=== PATIENT | male | born 1950 | race Caucasian/White ===

== ENCOUNTER 2018-03-13 21:43 | Emergency (ER) | payer BC ==
[2018-03-13] MEDS ORDERED: Lidocaine 1% 20 ML MDV ONE (22:03)
[2018-03-13] MEDS ORDERED: Lidocaine 1% 10 ML MDV INJECT ONE (22:25)
[2018-03-13] MEDS ORDERED: Diphtheria,Pertussis(Acell),Tetanus Vaccine 0.5 ML SDV IM ONE (22:25)
--- NOTE | 2018-03-13 22:44 | EDM.PDOC ---
ED HPI GENERAL MEDICAL PROBLEM - General Chief Complaint: Laceration Stated Complaint: laceration Left ear Time Seen by Provider: 03/13/18 22:39 Source of Information: Reports: Patient History Limitations: Reports: No Limitations - History of Present Illness INITIAL COMMENTS - FREE TEXT/NARRATIVE: Patient is a 67-year-old gentleman who presents to the emergency department this evening with a complaint of left ear laceration. Patient states that he tripped and landed against a dresser and struck the left side of his head. Patient denies syncopal episode, history of falls, headache, blurry vision, nausea, vomiting, neck pain, currently on blood thinners, or any other injury. Onset: Today Onset Date: 03/13/18 Onset Time: 21:00 Location: Reports: Head Quality: Reports: Other (No discomfort) Improves with: Reports: None Worsens with: Reports: None Context: Reports: Trauma Associated Symptoms: Reports: No Other Symptoms - Related Data Allergies Allergy/AdvReac Type Severity Reaction Status Date / Time No Known Drug Allergies Allergy Cannot Verified 03/13/18 21:57 Remember Home Meds: Home Meds . [No Known Home Meds] 03/13/18 [History] ED ROS GENERAL - Review of Systems Review Of Systems: ROS reveals no pertinent complaints other than HPI. Constitutional: Reports: No Symptoms HEENT: Reports: No Symptoms Respiratory: Reports: No Symptoms Cardiovascular: Reports: No Symptoms Endocrine: Reports: No Symptoms GI/Abdominal: Reports: No Symptoms : Reports: No Symptoms Musculoskeletal: Reports: No Symptoms Skin: Reports: Wound (Laceration to left ear) Neurological: Reports: No Symptoms Psychiatric: Reports: No Symptoms Hematologic/Lymphatic: Reports: No Symptoms Immunologic: Reports: No Symptoms ED EXAM, SKIN/RASH Exam: See Below Exam Limited By: No Limitations General Appearance: Alert, WD/WN, No Apparent Distress Eye Exam: Bilateral Eye: Normal Inspection Ears: Normal Canal, Normal TMs, Other (Left superior auricle with a 3 cm laceration extending from anterior to posterior) Nose: Normal Inspection, No Blood Throat/Mouth: Normal Inspection, Normal Oropharynx, No Airway Compromise Neck: Normal Inspection, Supple, Non-Tender, Full Range of Motion Respiratory/Chest: No Respiratory Distress GI/Abdominal: Normal Bowel Sounds, Soft, Non-Tender Back Exam: Normal Inspection Extremities: Normal Inspection Neurological: Alert, Oriented, CN II-XII Intact, Normal Cognition, No Motor/ Sensory Deficits Psychiatric: Normal Affect, Normal Mood Skin: Warm, Dry, Intact, Normal Color, No Rash Location, Skin: Head ED SKIN PROCEDURES - Laceration/Wound Repair Left Posterior Ear Appearance: Superficial Distal NVT: Neuro & Vascular Intact Anesthetic Type: Local Local Anesthesia - Lidocaine (Xylocaine): 1% Plain Local Anesthetic Volume: 3cc Skin Prep: Providone-Iodine (Betadine) Closed with: Sutures Suture Size: other (5.0) Sterile Dressing Applied: Nurse Tetanus Status Addressed: Yes Course - Vital Signs Last Recorded V/S: Last Vital Signs Temp 95.9 F 03/13/18 21:55 Pulse 101 H 03/13/18 21:55 Resp 16 03/13/18 21:55 BP 164/89 H 03/13/18 21:55 Pulse Ox 92 L 03/13/18 21:55 - Orders/Labs/Meds Orders: Active Orders 24 hr Category Date Time Status Vaccines to be Administered [RC] PER UNIT ROUTINE Care 03/13/18 22:26 Active Meds: Medications Discontinued Medications Generic Name Dose Route Start Last Admin Trade Name Jessica PRN Reason Stop Dose Admin Diphtheria/Tetanus/Acell Pertussis 0.5 ml 03/13/18 22:25 Adacel IM 03/13/18 22:26 .ONCE ONE Lidocaine HCl Confirm 03/13/18 22:03 03/13/18 22:27 Xylocaine 1% Administered 03/13/18 22:04 Not Given Dose 20 ml .ROUTE .STK-MED ONE Lidocaine HCl 3 ml 03/13/18 22:25 03/13/18 22:27 Xylocaine 1% INJECT 03/13/18 22:26 3 ml ONETIME ONE Administration - Re-Assessments/Exams Free Text/Narrative Re-Assessment/Exam: 03/13/18 22:45 Patient afebrile, nontoxic appearing, vital signs stable, tolerated procedure well. Patient will return to clinic to have sutures removed in 10 days. Departure - Departure Time of Disposition: 22:45 Disposition: Home, Self-Care 01 Condition: Good Clinical Impression: Ear lobe laceration Qualifiers: Encounter type: initial encounter Laterality: left Qualified Code(s): S01.312A - Laceration without foreign body of left ear, initial encounter - Discharge Information Instructions: Stitches, [place], or Adhesive Wound Closure, [id number], Laceration Care, Adult, [id number] Referrals: Nina Kovacs MD [Physician] - Additional Instructions: Follow-up with Dr. Reddy in 10 days for suture removal, return to emergency department sooner if symptoms continue. - My Orders Last 24 Hours: My Active Orders 03/13/18 22:26 Vaccines to be Administered [RC] PER UNIT ROUTINE - Assessment/Plan Last 24 Hours: My Active Orders 03/13/18 22:26 Vaccines to be Administered [RC] PER UNIT ROUTINE Assessment:: Laceration, left ear Plan: Patient return in 10 days to clinic for suture removal
== END 2018-03-13 22:50 | disposition home or self-care (01) ==
LOC: KA.ED 21:43
DX: S01.312A Laceration without foreign body of left ear, initial encounter (principal); W18.09XA Striking against other object with subsequent fall, initial encounter; Z23 Encounter for immunization
CPT/HCPCS: 12013; 90471; 90715; 99282; A9270-GY

== ENCOUNTER 2022-01-19 10:33 | Inpatient (IN) | payer MEDICARE ==
[2022-01-19 11:02] LABS: HEMOGLOBIN A1C 12.9 % (4.3-5.7)
[2022-01-19 11:12] LABS: ANION GAP 9.2 mmol/L (5-15); CHLORIDE,CL 98 mmol/L (98-107); SODIUM,NA 134 mmol/L (136-145)
[2022-01-19] MEDS ORDERED: Sodium Chloride 0.9% 10 ML Syringe FLUSH PRN (12:56)
[2022-01-19] MEDS ORDERED: Zolpidem 5 MG Tab PO PRN (12:56)
[2022-01-19] MEDS ORDERED: Ondansetron 4 MG Tab.DIS PO PRN (13:00)
[2022-01-19] MEDS ORDERED: Insulin Glargine,Hum.Rec.Anlog 100 UNIT/ML 3 ML Pen SUBCUT ONE (13:00)
[2022-01-19] MEDS ORDERED: Albuterol/Ipratropium 3.0-0.5 MG/3 ML Neb Soln NEB PRN (13:00)
[2022-01-19] MEDS ORDERED: 50% Dextrose in Water 50 ML Syringe IVPUSH PRN (13:08)
[2022-01-19] MEDS ORDERED: Glucagon,Human Recombinant 1 MG Vial IM PRN (13:08)
[2022-01-19] MEDS ORDERED: Sodium Chloride 0.9% 1,000 ML IV ONE (13:09)
[2022-01-19] MEDS ORDERED: Iopamidol 755 Mg/ML 75 ML Bottle IVPUSH ONE (13:15)
[2022-01-19] MEDS ORDERED: Sodium Chloride 0.9% 100 ML IV SCH (13:15)
[2022-01-19] MEDS ORDERED: Azithromycin 500 MG in Sodium Chloride 0.9% 250 ML IV SCH (14:00)
[2022-01-19] MEDS: predniSONE 20 MG Tab PO SCH (17:58)
[2022-01-19] MEDS: Hydrocortisone/Neomycin/Polymyxin B Otic Susp 10 ML Bottle EARRT SCH ×2 (17:58→22:11)
[2022-01-19] MEDS ORDERED: metFORMIN 500 MG Tab.ER PO SCH (18:00)
[2022-01-19] MEDS: Insulin Lispro 100 Unit/ML 3 ML KwikPen SUBCUT SCH (18:08)
[2022-01-19] MEDS ORDERED: Acetaminophen 325 MG Tab PO PRN (19:28)
[2022-01-19] MEDS: guaiFENesin/Dextromethorphan 100-10 MG/5 ML Soln 5 ML Cup PO PRN (19:43)
[2022-01-19] MEDS ORDERED: Insulin Glargine,Hum.Rec.Anlog 100 UNIT/ML 3 ML Pen SUBCUT SCH (22:00)
[2022-01-20] MEDS: guaiFENesin/Dextromethorphan 100-10 MG/5 ML Soln 5 ML Cup PO PRN ×2 (00:32→07:13)
[2022-01-20 06:21] VITALS: BP 153/82; PULSE 87
[2022-01-20] MEDS: Lisinopril 10 MG Tab PO SCH ×2 (07:13→08:10)
[2022-01-20] MEDS: Hydrochlorothiazide 12.5 MG Cap PO SCH ×2 (07:14→08:09)
[2022-01-20] MEDS: predniSONE 20 MG Tab PO SCH ×2 (07:15→08:09)
[2022-01-20] MEDS: Hydrocortisone/Neomycin/Polymyxin B Otic Susp 10 ML Bottle EARRT SCH ×3 (07:18→13:50)
[2022-01-20] MEDS: Insulin Lispro 100 Unit/ML 3 ML KwikPen SUBCUT SCH ×2 (08:02→12:14)
[2022-01-20] MEDS ORDERED: Pseudoephedrine 30 MG Tab PO PRN (19:55)
== END 2022-01-20 13:40 | disposition home or self-care (01) | DRG 637 ==
LOC: KA.OC 10:33 → KA.MS 11:00 → UNDOADMIN 11:00 → KA.MS 12:17
PROVIDERS: ADMIT Nurse Practitioner Family; ATTEND Nurse Practitioner Family
DX: E11.65 Type 2 diabetes mellitus with hyperglycemia (principal); J18.9 Pneumonia, unspecified organism; R91.8 Other nonspecific abnormal finding of lung field; H90.3 Sensorineural hearing loss, bilateral; Z20.822 Contact with and (suspected) exposure to COVID-19; H60.509 Unspecified acute noninfective otitis externa, unspecified ear; Z79.4 Long term (current) use of insulin; Z79.52 Long term (current) use of systemic steroids; Z79.899 Other long term (current) drug therapy
CPT/HCPCS: 36415; 71046; 71275; 80048; 82947; 83036; 85025; 85379; 87070; 87186; 87205; A9270-GY; J0456; J1815-GY; J7030; J7050; J7512; J7620-GY; Q9967; U0002

== ENCOUNTER 2025-08-26 18:02 | Inpatient (IN) | payer MEDICARE ==
[2025-08-26] MEDS: Sodium Chloride 0.9% 10 ML Syringe FLUSH PRN (19:17)
[2025-08-26 19:26] LABS: BASOPHILS ABSOLUTE AUTO 0.08 10^3/uL (0.00-0.10); BASOPHILS PERCENT AUTO 0.8 % (0.0-1.0); EOSINOPHILS ABSOLUTE AUTO 0.44 10^3/uL (0.10-0.30); EOSINOPHILS PERCENT AUTO 4.3 % (1.0-3.0); IMMATURE GRAN ABSOLUTE AUTO 0.02 10^3/uL (0.00-0.04); IMMATURE GRAN PERCENT AUTO 0.2 % (0.0-0.4); LYMPHOCYTES ABSOLUTE AUTO 1.50 10^3/uL (1.00-4.00); LYMPHOCYTES PERCENT AUTO 14.6 % (20.0-40.0); MEAN PLATELET VOLUME 9.5 fL (7.4-10.4); MONOCYTES ABSOLUTE AUTO 1.00 10^3/uL (0.10-0.80); MONOCYTES PERCENT AUTO 9.7 % (2.0-8.0); NEUTROPHILS ABSOLUTE AUTO 7.24 10^3/uL (2.50-7.00); NEUTROPHILS PERCENT AUTO 70.4 % (50.0-70.0); PLATELET COUNT,PLT 165 10^3/uL (150-400); RED BLOOD CELL COUNT 3.52 10^6/uL (4.50-6.00); RED CELL DISTRIBUTION WIDTH 14.0 % (11.5-14.5); WHITE BLOOD CELL COUNT,WBC 10.28 10^3/uL (5.00-10.00)
[2025-08-26 19:51] LABS: ALANINE AMINOTRANSFERASE,ALT 27.0 U/L (14-63); ASPARTATE AMNIOTRANSFERASE,AST 23.0 U/L (15-37); BILIRUBIN TOTAL 0.4 mg/dL (0.2-1.0); BLOOD UREA NITROGEN,BUN 26.0 mg/dL (7-18); CARBON DIOXIDE,CO2 30.3 mmol/L (21.0-32.0); CHLORIDE,CL 102.0 mmol/L (98-107); CREATININE 0.97 mg/dL (0.51-1.17); EST CRCL DRUG DOSING (CG) 57.24 mL/min; ESTIMATED GFR 81.0 mL/min (>=60); GLUCOSE RANDOM 173.0 mg/dL (70-140); POTASSIUM,K 4.0 mmol/L (3.5-5.1); PROTEIN TOTAL,TP 6.1 g/dL (6.4-8.2); SODIUM,NA 139.0 mmol/L (136-145)
[2025-08-26] MEDS: Iopamidol 755 Mg/ML 100 ML Bottle IV ONE (20:25)
[2025-08-26 20:28] LABS: APPEARANCE,URINE CLEAR (CLEAR); GLUCOSE,URINE NEGATIVE (NEGATIVE); OCCULT BLOOD,URINE TRACE-INTACT (NEGATIVE)
[2025-08-26 20:35] LABS: EPITHELIAL CELLS,URINE NOT SEEN /LPF; SQUAMOUS EPITHELIAL CELLS,UR NOT SEEN /HPF (NOT SEEN)
[2025-08-26] MEDS ORDERED: 50% Dextrose in Water 50 ML Syringe IVPUSH PRN ×3 (23:06)
[2025-08-26] MEDS ORDERED: Glucose Gel 15 GM in 37.5 GM Tube PO PRN (23:06)
[2025-08-27] MEDS: Insulin Lispro 100 Unit/ML 3 ML KwikPen SUBCUT SCH ×2 (07:43→21:58)
[2025-08-27 07:44] LABS: BASOPHILS ABSOLUTE AUTO 0.08 10^3/uL (0.00-0.10); BASOPHILS PERCENT AUTO 0.8 % (0.0-1.0); EOSINOPHILS ABSOLUTE AUTO 0.61 10^3/uL (0.10-0.30); EOSINOPHILS PERCENT AUTO 6.2 % (1.0-3.0); IMMATURE GRAN ABSOLUTE AUTO 0.02 10^3/uL (0.00-0.04); IMMATURE GRAN PERCENT AUTO 0.2 % (0.0-0.4); LYMPHOCYTES ABSOLUTE AUTO 1.82 10^3/uL (1.00-4.00); LYMPHOCYTES PERCENT AUTO 18.5 % (20.0-40.0); MEAN PLATELET VOLUME 9.2 fL (7.4-10.4); MONOCYTES ABSOLUTE AUTO 0.80 10^3/uL (0.10-0.80); MONOCYTES PERCENT AUTO 8.1 % (2.0-8.0); NEUTROPHILS ABSOLUTE AUTO 6.51 10^3/uL (2.50-7.00); NEUTROPHILS PERCENT AUTO 66.2 % (50.0-70.0); PLATELET COUNT,PLT 190 10^3/uL (150-400); RED BLOOD CELL COUNT 3.47 10^6/uL (4.50-6.00); RED CELL DISTRIBUTION WIDTH 13.7 % (11.5-14.5); WHITE BLOOD CELL COUNT,WBC 9.84 10^3/uL (5.00-10.00)
[2025-08-27 08:01] LABS: BLOOD UREA NITROGEN,BUN 15.0 mg/dL (7-18); CARBON DIOXIDE,CO2 29.0 mmol/L (21.0-32.0); CHLORIDE,CL 102.0 mmol/L (98-107); CREATININE 0.66 mg/dL (0.51-1.17); EST CRCL DRUG DOSING (CG) 84.0 mL/min; GLUCOSE RANDOM 161.0 mg/dL (70-140); POTASSIUM,K 3.9 mmol/L (3.5-5.1); SODIUM,NA 138.0 mmol/L (136-145)
[2025-08-27 08:08] LABS: ESTIMATED GFR 98.0 mL/min (>=60)
[2025-08-27] MEDS: Multivitamins with Minerals/Iron/Folic Acid/Lycopene Tab PO SCH (08:33)
[2025-08-27] MEDS: Cyanocobalamin (Vitamin B12) 500 MCG Tab PO SCH (08:33)
[2025-08-27] MEDS: Acetaminophen/oxyCODONE 325-5 MG Tab PO PRN (08:40)
[2025-08-27 11:35] LABS: PHOSPHORUS 3.2 mg/dL (2.6-4.7)
[2025-08-28] MEDS: Sennosides/Docusate Sodium 50-8.6 MG Tab PO PRN (08:39)
[2025-08-28] MEDS: Furosemide 40 MG/4 ML VIAL IVPUSH ONE (11:44)
[2025-08-28] MEDS: Trolamine Salicylate/Aloe Vera 10% Crm 85 GM Tube TOP PRN (20:39)
[2025-08-29] MEDS: TRULICITY 3 MG/0.5 ML SQ SCH (21:23)
[2025-08-30] MEDS: hydrALAZINE 20 MG/ML SDV IVPUSH PRN (17:05)
[2025-08-31] MEDS: Insulin Lispro 100 Unit/ML 3 ML KwikPen SUBCUT SCH (08:21)
== END 2025-08-31 11:26 | disposition home or self-care (01) | DRG 948 ==
LOC: KA.ED 18:02 → KA.MS 21:20
PROVIDERS: ADMIT Family Medicine; ATTEND Family Medicine
DX: R53.81 Other malaise (principal); J98.11 Atelectasis; R53.1 Weakness; E11.42 Type 2 diabetes mellitus with diabetic polyneuropathy; I10 Essential (primary) hypertension; Z79.84 Long term (current) use of oral hypoglycemic drugs; J45.909 Unspecified asthma, uncomplicated; E11.21 Type 2 diabetes mellitus with diabetic nephropathy; E86.0 Dehydration; I95.9 Hypotension, unspecified; R26.2 Difficulty in walking, not elsewhere classified; R09.02 Hypoxemia; M19.90 Unspecified osteoarthritis, unspecified site; Z96.659 Presence of unspecified artificial knee joint; Z79.82 Long term (current) use of aspirin; Z98.890 Other specified postprocedural states; Z79.4 Long term (current) use of insulin; Z79.899 Other long term (current) drug therapy; Z98.49 Cataract extraction status, unspecified eye; Z87.891 Personal history of nicotine dependence
CPT/HCPCS: 36415; 71045; 71275; 73560-RT; 80048; 80053; 81001; 82947; 83605; 83735; 84100; 84484; 85014; 85018; 85025; 85379; 93010; 97110-GP; 97116-GP; 97161-GP; 97165-GO; 97535-GO; 99284; 99285; A4315; A9270-GY; J0360; J1650; J1938; J7030; Q3014; Q9967

== ENCOUNTER 2025-08-31 08:17 | Inpatient (IN) | payer MEDICARE ==
[2025-08-31] MEDS ORDERED: Glucose Gel 15 GM in 37.5 GM Tube PO PRN ×3 (10:59)
[2025-08-31] MEDS ORDERED: 50% Dextrose in Water 50 ML Syringe IVPUSH PRN ×3 (10:59)
[2025-08-31] MEDS ORDERED: Acetaminophen/oxyCODONE 325-5 MG Tab PO PRN (10:59)
[2025-08-31] MEDS: Insulin Lispro 100 Unit/ML 3 ML KwikPen SUBCUT SCH (12:33)
[2025-09-01] MEDS: Multivitamins with Minerals/Iron/Folic Acid/Lycopene Tab PO SCH (08:25)
[2025-09-01] MEDS: Cyanocobalamin (Vitamin B12) 500 MCG Tab PO SCH (08:26)
[2025-09-03] MEDS: Trolamine Salicylate/Aloe Vera 10% Crm 85 GM Tube TOP PRN (20:25)
[2025-09-04 08:02] LABS: BLOOD UREA NITROGEN,BUN 13.0 mg/dL (7-18); CARBON DIOXIDE,CO2 31.2 mmol/L (21.0-32.0); CHLORIDE,CL 104.0 mmol/L (98-107); CREATININE 0.64 mg/dL (0.51-1.17); EST CRCL DRUG DOSING (CG) 86.75 mL/min; GLUCOSE RANDOM 148.0 mg/dL (70-140); PHOSPHORUS 3.6 mg/dL (2.6-4.7); POTASSIUM,K 4.2 mmol/L (3.5-5.1); SODIUM,NA 142.0 mmol/L (136-145)
[2025-09-04 08:04] LABS: ESTIMATED GFR 99.0 mL/min (>=60)
[2025-09-05] MEDS: TRULICITY 3 MG/0.5 ML SQ SCH (08:23)
[2025-09-07] MEDS: Sennosides/Docusate Sodium 50-8.6 MG Tab PO PRN (08:21)
== END 2025-09-07 13:05 | disposition home or self-care (01) | DRG 948 ==
LOC: UNDOADMIN 10:59 → KA.MS 10:59
PROVIDERS: ADMIT Internal Medicine; ATTEND Internal Medicine
DX: R53.81 Other malaise (principal); I10 Essential (primary) hypertension; E11.9 Type 2 diabetes mellitus without complications; R26.2 Difficulty in walking, not elsewhere classified; M19.90 Unspecified osteoarthritis, unspecified site; Z98.890 Other specified postprocedural states; Z79.899 Other long term (current) drug therapy; Z79.82 Long term (current) use of aspirin
CPT/HCPCS: 36415; 80069; 82947; 97110-GP; 97116-GP; 97161-GP; 97165-GO; 97530-GO; 97535-GO; 99316-GT; A9270-GY; J1650; Q3014